=== PATIENT | female | born 1995 | race Caucasian/White ===

== ENCOUNTER 2020-10-03 13:08 | Emergency (ER) | payer BC ==
[~2020-10-03] VITALS: Ht 175.3 cm; Wt 59.1 kg
[2020-10-03 13:16] VITALS: BP 115/87; TEMP 97.6
[2020-10-03] MEDS ORDERED: ZYRTEC 10MG10 MG PO (13:35)
[2020-10-03 14:29] VITALS: PULSE 95
== END 2020-10-03 14:30 | disposition home or self-care (01) ==
LOC: COL.ER 13:08
DX: J98.01 Acute bronchospasm (principal)